=== PATIENT | female | born 1975 | race Native Hawaiian/Other Pacific Islander ===

== ENCOUNTER 2016-03-30 09:36 | Outpatient (CLI) | payer OTHER | END 2016-03-30 09:37 | disposition home or self-care (01) | DX: E03.9 Hypothyroidism, unspecified (principal); L65.9 Nonscarring hair loss, unspecified ==

== ENCOUNTER 2016-11-01 07:09 | Outpatient (CLI) | payer OTHER ==
--- NOTE | 2016-11-01 10:20 | XRAY Report ---
THREE-VIEW LEFT SHOULDER: 11/01/2016 CLINICAL INDICATION: Pain. FINDINGS: Internal and external rotational views and a scapular Y view of the left shoulder demonstr ate no evidence of fracture or dislocation. The joint spaces are preserved. No radiopaque foreign b martin is seen in the soft tissues. IMPRESSION: NORMAL LEFT SHOULDER. JOB #: [id number] EXT JOB #:[id number]
== END 2016-11-01 07:10 | disposition home or self-care (01) ==
LOC: DI 07:09
PROVIDERS: ATTEND Family Medicine
DX: M25.512 Pain in left shoulder (principal)

== ENCOUNTER 2017-02-04 16:15 | Outpatient (CLI) | payer OTHER ==
--- NOTE | 2017-02-05 12:27 | MRI Report ---
EXAM: LEFT SHOULDER MRI WITHOUT CONTRAST EXAM DATE: 02/04/2017 05:55 PM. CLINICAL HISTORY: Muscle strain. COMPARISON: 11/01/2016 radiograph. TECHNIQUE: Multiplanar, multisequence T1-weighted and fluid-sensitive sequences of the shoulder witho ut contrast. Other: None. FINDINGS: Acromioclavicular Region: The acromion is type II. The acromioclavicular joint is unremarkable. The c oracoacromial and coracoclavicular ligaments are intact. A mild amount of fluid is in the subacromial /subdeltoid bursa. Glenohumeral Region: No subluxation. No effusion or loose bodies. The articular cartilage is unremark able. The glenohumeral ligaments and joint capsule are unremarkable. Bone Marrow: No fracture, marrow edema or bone lesions. Labrum: The labrum is unremarkable on this nonarthrographic study. Musculature/Rotator Cuff: The subscapularis tendon is unremarkable. The supraspinatus tendon has a fo sylvia partial-thickness tear, likely intrasubstance. This is 4 mm in width, 2 mm in length, and roughly 50% in thickness (501/6; 701/5). The infraspinatus and teres minor tendons are intact. No edema or f atty atrophy. Biceps Tendon: The long head of the biceps tendon and biceps tri are intact. Other: The subcutaneous tissues are unremarkable. IMPRESSION: 1. Mild subacromial/subdeltoid bursitis. 2. Small intrasubstance tear of the supraspinatus tendon. [facility] MUSCULOSKELETAL RADIOLOGY SECTION Referring Provider Line: [phone] SITE ID: [id number]
== END 2017-02-04 16:16 | disposition home or self-care (01) ==
LOC: DI 16:15
PROVIDERS: ATTEND Family Medicine
DX: S46.012D Strain of muscle(s) and tendon(s) of the rotator cuff of left shoulder, subsequent encounter (principal); M75.52 Bursitis of left shoulder

== ENCOUNTER 2017-03-15 15:13 | Outpatient (CLI) | payer OTHER | END 2017-03-15 15:14 | disposition home or self-care (01) | LOC: LAB.WCP 15:13 | PROVIDERS: ATTEND Physician Assistant Medical | DX: J03.90 Acute tonsillitis, unspecified (principal) | CPT/HCPCS: 87070 ==